=== PATIENT | male | born 1960 | race Caucasian/White ===

== ENCOUNTER 2019-10-28 00:45 | Emergency (ER) | payer BC ==
[2019-10-28 01:24] LABS: CHLORIDE,CL 102 mmol/L (101-111); SODIUM,NA 135 mmol/L (135-145)
--- NOTE | 2019-10-28 02:50 | EDM.PDOC ---
ED HPI GENERAL MEDICAL PROBLEM - General Chief Complaint: Syncope Stated Complaint: UNKNOWN Time Seen by Provider: 10/28/19 00:50 Source of Information: Reports: Patient, EMS, Family, RN History Limitations: Reports: No Limitations - History of Present Illness INITIAL COMMENTS - FREE TEXT/NARRATIVE: ED via [place] ambulance with possible seizure. Report patient found in recliner "ashen" unresponsive moaning, Lowered to floor by family, started to come around partially and attempted to sit up then went out again, slowly came around , Initial BP 110/76 by family. Patient diaphoretic with episode. states 20 seconds to one minute. . Family did not note any weakness, facial droop or difficulty with speech. Partial recollection by patient. Patient notes earlier today onset of congestion took Pseudafed and zyrtec. Has used both before without problems. Experienced some indigestion. Just should've have taken some tums. Denies pain at present. No nausea. Aert oriented on arrival. - Related Data Allergies Allergy/AdvReac Type Severity Reaction Status Date / Time No Known Allergies Allergy Verified 10/28/19 01:05 Social & Family History - Family History Family Medical History: Noncontributory - Tobacco Use Smoking Status *Q: Never Smoker Second Hand Smoke Exposure: No - Caffeine Use Caffeine Use: Reports: Coffee, Soda - Recreational Drug Use Recreational Drug Use: No ED ROS GENERAL - Review of Systems Review Of Systems: See Below Constitutional: Reports: Diaphoresis HEENT: Reports: Sinus Problem Respiratory: Reports: No Symptoms Cardiovascular: Reports: Syncope GI/Abdominal: Reports: Diarrhea (x2 in ed), Nausea Skin: Reports: No Symptoms Neurological: Reports: Syncope - Physical Exam Exam: See Below Exam Limited By: No Limitations General Appearance: Alert, No Apparent Distress Eye Exam: Bilateral Eye: EOMI, PERRL Ears: Normal External Exam, Normal TMs Nose: Normal Inspection Throat/Mouth: Normal Inspection Head Exam: Atraumatic, Normocephalic Neck: Normal Inspection, Full Range of Motion Respiratory/Chest: No Respiratory Distress, Lungs Clear Cardiovascular: Regular Rate, Rhythm, No Edema GI/Abdominal: Normal Bowel Sounds, Soft, Non-Tender Neuro Exam (Abbreviated): Alert, Oriented, Memory Loss Recent Events Back Exam: Full Range of Motion Extremities: Normal Inspection Psychiatric: Flat Affect Skin Exam: Warm, Dry, Intact, Normal Color Course - Vital Signs Last Recorded V/S: Last Vital Signs Temp 98 F 10/28/19 00:50 Pulse 87 10/28/19 00:50 Resp 17 10/28/19 00:50 BP 139/69 10/28/19 00:50 Pulse Ox 99 10/28/19 00:50 - Orders/Labs/Meds Orders: Active Orders 24 hr Category Date Time Status Head wo Cont [CT] Urgent Exams 10/28/19 01:02 Taken Labs: Laboratory Tests 10/28/19 10/28/19 10/28/19 Range/Units 00:59 00:59 00:59 WBC 11.3 H (5.0-10.0) 10^3/uL RBC 5.07 (4.6-6.2) 10^6/uL Hgb 15.5 (14.0-18.0) g/dL Hct 44.8 (40.0-54.0) % MCV 88.4 (80-100) fL MCH 30.6 (27.0-34.0) pg MCHC 34.6 (33.0-35.0) g/dL Plt Count 216 (150-450) 10^3/uL Neut % (Auto) 85.5 H (42.2-75.2) % Lymph % (Auto) 4.7 L (20.5-50.1) % [place] % (Auto) 7.6 (2-8) % Eos % (Auto) 2.0 (1.0-3.0) % Baso % (Auto) 0.2 (0.0-1.0) % Sodium 135 (135-145) mmol/L Potassium 4.0 (3.6-5.0) mmol/L Chloride 102 (101-111) mmol/L Carbon Dioxide 23.0 (21.0-31.0) mmol/L Anion Gap 14.0 BUN 20 H (7-18) mg/dL Creatinine 1.1 (0.6-1.3) mg/dL Est Cr Clr Drug Dosing 85.35 mL/min Estimated GFR (MDRD) > 60 BUN/Creatinine Ratio 18.18 Glucose 121 H (74-105) mg/dL Calcium 8.9 (8.4-10.2) mg/dl Magnesium 2.1 (1.8-2.5) mg/dL Total Bilirubin 1.1 H (0.2-1.0) mg/dL AST 30 (10-42) IU/L ALT 33 (10-60) IU/L Alkaline Phosphatase 69 (42-121) IU/L Troponin I < 0.02 (0.00-0.02) ng/ml Total Protein 7.9 (6.7-8.2) g/dl Albumin 4.4 (3.2-5.5) g/dl Globulin 3.5 Albumin/Globulin Ratio 1.26 Amylase 63 (28-100) U/L TSH, Ultra Sensitive 4.23 (0.45-5.33) uIu/mL Ethyl Alcohol < 5 mg/dL - Radiology Interpretation Free Text/Narrative:: CT head no acute findings - Re-Assessments/Exams Free Text/Narrative Re-Assessment/Exam: 10/28/19 02:54 Dr Mckeon accepting patient for further eval syncope vs seizure Departure - Departure Time of Disposition: 02:55 Disposition: DC/Tfer to Acute Hospital 02 Condition: Good, Undetermined Clinical Impression: Syncope Qualifiers: Syncope type: unspecified Qualified Code(s): R55 - Syncope and collapse - Discharge Information *PRESCRIPTION DRUG MONITORING PROGRAM REVIEWED*: No *COPY OF PRESCRIPTION DRUG MONITORING REPORT IN PATIENT CORY: No - My Orders Last 24 Hours: My Active Orders 10/28/19 01:02 Head wo Cont [CT] Urgent - Assessment/Plan Last 24 Hours: My Active Orders 10/28/19 01:02 Head wo Cont [CT] Urgent
== END 2019-10-28 02:58 ==
LOC: DL.ED 00:45
DX: R55 Syncope and collapse (principal)
CPT/HCPCS: 36415; 70450; 80053; 82150; 82272; 83735; 84443; 84484; 85025; 87899; 99285-25; G0480

== ENCOUNTER 2019-11-02 06:01 | Day surgery (SDC) | payer BC ==
[2019-11-02] MEDS ORDERED: fentaNYL 100 MCG/2 ML SDV IV ONE ×3 (06:02→07:20)
[2019-11-02] MEDS ORDERED: Midazolam 1 MG/ML 2 ML SDV IV ONE ×5 (06:02→07:22)
[2019-11-02] MEDS ORDERED: Midazolam 1 MG/ML 2 ML SDV ONE (06:28)
[2019-11-02] MEDS ORDERED: fentaNYL 100 MCG/2 ML SDV ONE (06:28)
[2019-11-02] MEDS ORDERED: Dextrose 5%-0.45% NaCl 1,000 ML IV SCH (06:45)
--- NOTE | 2019-11-02 13:26 | OR ---
DATE: 11/02/2019 POSTOPERATIVE DIAGNOSIS: Screening colonoscopy. POSTOPERATIVE DIAGNOSIS: Screening colonoscopy. PROCEDURE: Total colonoscopy. ANESTHESIA: Conscious sedation with IV Versed and fentanyl. SPECIMEN: None. FINDINGS: Normal colonoscopy. RECOMMENDATION: Followup screening colonoscopy 10 years or sooner for symptoms. INDICATION FOR PROCEDURE: This 59-year-old male presents for screening colonoscopy. PROCEDURE IN DETAIL: After adequate preparation, a colonoscope was inserted into the rectum. This was easily passed all the way to the cecum. Confirmation of the cecum was made by visualization of the ileocecal valve and palpation in the right lower quadrant. The bowel prep was very good. On withdrawal of the scope, no abnormalities were noted. No evidence of polyps, growths, diverticulosis, or colitis. Rectal and anal examination are also normal. Air was suctioned from the colon and the scope removed. [facility] /[id number]
== END 2019-11-02 09:00 | disposition home or self-care (01) ==
LOC: DL.ENDO 06:01
PROVIDERS: ATTEND Surgery
DX: Z12.11 Encounter for screening for malignant neoplasm of colon (principal)
CPT/HCPCS: 45378; J2250; J3010; J7042; G0121